=== PATIENT | female | born 1980 | race Caucasian/White ===

== ENCOUNTER → 2018-02-11 | Outpatient (CLI) | payer MEDICAID, OTHER ==
[~2018-02-11] MED LIST: MACR100C PO; OXYC-360 PO; Z.0.NO CURRENT MEDS
[2018-02-11 12:04] LABS: BASOPHIL % 0.6 % (0.0-2.0); EOSINOPHIL # 0.1 TH/MM3 (0-0.4); EOSINOPHIL % 1.6 % (0.0-4.0); HEMATOCRIT 44.1 % (35.0-46.0); HEMOGLOBIN 15.1 GM/DL (11.6-15.3); LYMPH % 25.4 % (9.0-44.0); MEAN CELL VOLUME 91.9 FL (80.0-100.0); MEAN CORPUSCULAR HEMOGLOBIN 31.4 PG (27.0-34.0); MEAN CORPUSCULAR HGB CONC 34.2 % (32.0-36.0); MEAN PLATELET VOLUME 8.5 FL (7.0-11.0); MONO % 9.4 % (0.0-8.0); MONOCYTE # 0.7 TH/MM3 (0-0.9); PLATELET COUNT 194 TH/MM3 (150-450); RED CELL DISTRIBUTION WIDTH 12.8 % (11.6-17.2); WHITE BLOOD COUNT 7.9 TH/MM3 (4.0-11.0)
[2018-02-11 12:25] LABS: BILIRUBIN, URINE NEG (NEG); BLOOD, URINE MOD (NEG); GLUCOSE,URINE NEG (NEG); KETONE, URINE NEG (NEG); MUCUS URINE FEW /lpf (OCC); NITRITE,URINE NEG (NEG); SQUAMOUS EPITHELIAL CELL URINE 10 /hpf (0-5); URINE COLOR YELLOW (YELLW/STRAW); URINE LEUKOCYTE ESTERASE NEG (NEG)
[2018-02-11 12:26] LABS: AST (GOT) 15 U/L (15-37); BICARBONATE 26.1 MEQ/L (21.0-32.0); BLOOD UREA NITROGEN 10 MG/DL (7-18); CALCIUM 9.4 MG/DL (8.5-10.1); CHLORIDE 103 MEQ/L (98-107); GLOMERULAR FILTRATION RATE 94 ML/MIN (>89); GLUCOSE,FASTING 84 MG/DL (74-99); SODIUM (NA) 138 MEQ/L (136-145)
[2018-02-11 12:28] LABS: ALT (GPT) 34 U/L (10-53)
[2018-02-11 12:32] LABS: ALKALINE PHOSPHATASE 77 U/L (45-117); TOTAL BILIRUBIN ADULT 0.9 MG/DL (0.2-1.0); TOTAL PROTEIN 7.8 GM/DL (6.4-8.2)
== END ==
LOC: CPRE 10:06
PROVIDERS: ATTEND Obstetrics & Gynecology Gynecology
DX: Z01.812 Encounter for preprocedural laboratory examination (principal); N81.11 Cystocele, midline
CPT/HCPCS: 36415; 80053; 81001; 84703; 85025

== ENCOUNTER → 2018-02-17 | Day surgery (SDC) | payer MEDICAID ==
--- NOTE | 2018-02-11 10:37 | MH ---
cc: Ramez Tee MD DATE OF ADMISSION: 02/17/2018 REASON FOR ADMISSION: Scheduled for anterior/posterior repair. HISTORY OF PRESENT ILLNESS: The patient is a 37-year-old white female, 6, para 6, who has had a prior hysterectomy who has issues with pelvic organ prolapse, stage II. The patient has been given options and she wants to proceed with surgical correction. PAST MEDICAL HISTORY: Notable is for kidney stones and microhematuria. No hypertension, diabetes, stroke, liver disease or heart disease. PAST SURGICAL HISTORY: Laparoscopy for ovarian cyst, sling procedure for stress incontinence in 2009, hysterectomy 2009, tubal ligation, cholecystectomy. MEDICATIONS: None. ALLERGIES: NONE. SOCIAL HISTORY: Does not smoke, use alcohol or drugs. FAMILY HISTORY: Noncontributory. HEAD CHEF HISTORY: Abnormal Pap smear history. Had hysterectomy because of the abnormal Pap smear. OB HISTORY: Six vaginal deliveries, uncomplicated. REVIEW OF SYSTEMS: As above. No chest pain, orthopnea or PND. No nausea, vomiting, fevers or chills. No vaginal bleeding or discharge. PHYSICAL EXAM: VITAL SIGNS: She is afebrile. Vital signs stable. Blood pressure is 120/70. Height is 5 feet 4 inches, weight is 180. BMI is 31. GENERAL: The patient is alert and oriented in no acute distress. No sign of cognitive dysfunction or depression. HEENT: Within normal limits. NECK: Supple. No JVD. CHEST: Clear. HEART: Regular rate and rhythm. ABDOMEN: Soft, nontender. No hepatosplenomegaly. No CVA tenderness. PELVIC: She has stage II pelvic organ prolapse. Details under anesthesia. EXTREMITIES: Warm. Skin without rashes. NEUROLOGIC: No focal abnormalities or DVT signs. ASSESSMENT: Patient with pelvic organ prolapse, anterior and posterior compartment stage II. At this point, we discussed options for management and treatment. She is aware of the risks, benefits and alternatives of the planned procedure including damage to surrounding organs, bleeding, infection, failure of repair, dyspareunia and new onset stress incontinence. The patient has made an informed choice to proceed. Will use DVT prophylaxis with sequential compression device and antibiotic prophylaxis with Ancef 2 grams. Anticipate outpatient procedure. MD ERIC Pham/RICKY , 10:07 AM , 10:36 AM
[~2018-02-17] VITALS: Ht 162.6 cm; Wt 84.4 kg
[~2018-02-17] MED LIST changes: +CHLORHEXIDINE GLUCONATE 2 % 1 PACK (2 CLOTHS) TOPICAL PRN; +DEXAMETHASONE SOD PHOS 4 MG/ML VIAL IV ONE; +DO NOT ADM ANY ANTICOAGULANT DRUGS PRN; +ESTROGENS CONJUGATED VAG CREA 15 APPL/30 GM TUBE ONE; +FLUORESCEIN SOD 10% SOLN 500 MG/5 ML AMP ONE; +KETOROLAC TROMETHAMINE 30 MG/ML (IVP) VIAL IM PRN; +KETOROLAC TROMETHAMINE 30 MG/ML (IVP) VIAL IV PUSH ONE; +KETOROLAC TROMETHAMINE 30 MG/ML (IVP) VIAL IV PUSH PRN; +LACTATED RINGER'S 1000 ML IV PRN; +LIDOCAINE 1%/EPINEPHrine 1:100,000 SOLN 30 ML VIAL ONE; +LIDOCAINE HCL 1% PF 5 ML SYRINGE OTHER ONE; -MACR100C PO; +METHYLENE BLUE 10 MG/ML VIAL OTHER ONE; +METOPROLOL TARTRATE 25 MG TAB PO PRN; +MIDAZOLAM HCL 2 MG/2 ML VIAL ONE; +ONDANSETRON HCL 4 MG/2 ML VIAL IV ONE; +ONDANSETRON ODT 4 MG TAB PO PRN; -OXYC-360 PO; +POVIDONE IODINE 5% (ANTISEPSIS KIT) 4 APPLICATIONS EACH NARE PRN; +PROPOFOL 200 MG/20 ML AMP IV ONE; +SODIUM CHLORID 0.9% 500 ML IV PRN; -Z.0.NO CURRENT MEDS; +ceFAZolin 2 GM/DEX PREMIX 50 ML IV SCH; +traMADol HCL 50 MG TAB PO PRN
[2018-02-17 11:07] VITALS: BP 105/65; PULSE 92; RESP 16; TEMP 98.4; O2SAT 98
--- NOTE | 2018-02-17 11:58 | MP ---
cc: Ramez Tee MD DATE OF OPERATION: 02/17/2018 DATE OF PROCEDURE: 02/17/2018 PREOPERATIVE DIAGNOSES: 1. Midline cystocele (Code N81.11). 2. Rectocele (Code N81.6). 3. Microhematuria (Code R31.1). POSTOPERATIVE DIAGNOSES: 1. Midline cystocele (Code N81.11). 2. Rectocele (Code N81.6). 3. Microhematuria (Code R31.1). 4. 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 Anterior and posterior repair (Code 51267). 2. External sphincteroplasty (Code 47008). 3. Cystoscopy (39449) coupled with the diagnosis of microhematuria. SURGEON: Ramez Tee MD ANESTHESIA: Laryngeal mask. BLOOD LOSS: 20 mL URINE OUTPUT: 200 mL. [employer]ATIONAL [employer] CONSULTANT: [place] staff x2. FLUIDS: 1000 cc crystalloid. FINDINGS: External genitalia normal. POP-Q: Aa is -1, Ap is +1, point C is -8, total vaginal length is 8, genital hiatus is 8, perineal body is 2 with a sphincter defect at 10 o'clock to 2 o'clock position. Cystoscopy is normal following repair, no sign of any significant abnormality in the bladder trigone, dome or base of bladder. No sign of urethral diverticula. Postop Aa is -2, Ap is -3, point C is -8, total vaginal length is 8, genital hiatus is 4, perineal body is 5. Rectal exam was normal following repair. SPECIMENS: None. COMPLICATIONS: None. DISPOSITION: To recovery, stable. COUNTS: Needle and sponge counts were correct. DRAINS: Sandhu catheter. ANTIBIOTIC PROPHYLAXIS: Ancef 2 grams. DVT PROPHYLAXIS: Sequential compression devices. Timeout procedure and identification per protocol. INDICATIONS FOR PROCEDURE: The patient was symptomatic with pelvic organ prolapse. PROCEDURE: The patient was taken to the operating room theatre, identified, prepped and draped in fashion appropriate for the planned procedure. She was in dorsal lithotomy position with careful attention paid to placement of the legs in stirrups to avoid undue stress to sensitive neurovascular structures. The above findings were noted. Neurovascular integrity documented. Sandhu catheter was placed. Posterior repair was approached first. This was the most prominent defect. Also on exam under anesthesia, there was a more obvious external sphincter defect that was not well appreciated in the preoperative evaluation. Posterior repair was performed in standard fashion with sharp dissection. There was no damage to the rectum. Posterior repair performed with light absorbable suture. Vaginal mucosa was trimmed and closed with running Vicryl suture without complication. Good anatomic hemostatic result. We did use hemostatic matrix to obviate the need for packing. External sphincteroplasty was performed in standard fashion with light absorbable suture with an overlapping technique with good result. Cystoscopy performed with above findings in light of the history of microhematuria. The patient tolerated the procedure well and was taken to the recovery room in stable condition. MD ERIC Pham/JUDY , 11:30 AM , 11:57 AM
== END | disposition home or self-care (01) ==
LOC: HSDC 05:57
PROVIDERS: ATTEND Obstetrics & Gynecology Gynecology
DX: N81.11 Cystocele, midline (principal); N81.6 Rectocele; R31.29 Other microscopic hematuria
CPT/HCPCS: 00942; 46750; 57265; J0690; J1100; J1885; J2250; J2405; J3010; J7120